=== PATIENT | female | born 1965 | race African-American/Black ===

== ENCOUNTER 2019-11-23 17:58 | Inpatient (IN) | payer MEDICAID ==
[~2019-11-23] VITALS: Ht 167.6 cm; Wt 73.5 kg
[2019-11-23] MEDS ORDERED: ONDANSETRON HCL 4MG/2ML INJ IV STA (18:38)
[2019-11-23] MEDS ORDERED: MORPHINE SULFATE 4 MG/ML CPJ (NOT FOR IM USE) IV STA (18:38)
[2019-11-23] MEDS ORDERED: SODIUM CHLORIDE 0.9% 1,000 ML IV ONE (18:38)
[2019-11-23 19:08] LABS: BASOPHILS % 0.5 % (0.0-2.0); EOSINOPHILS % 1.6 % (0.0-5.0); HEMATOCRIT. 45.2 % (36.0-48.0); HEMOGLOBIN. 15.4 g/dL (12.0-16.0); LYMPHOCYTES % 27.5 % (20.0-50.0); MEAN CORPUSCULAR HEMOGLOBIN 30.7 pg (28.0-32.0); MEAN CORPUSCULAR VOLUME 90.5 fL (81.0-99.0); MEAN PLATELET VOLUME 8.9 fl (7.4-10.4); MONOCYTES % 5.9 % (2.0-8.0); NEUTROPHILS % 64.5 % (40.0-76.0); PLATELET 283 x1000/uL (130-400); RED CELL DISTRIBUTION WIDTH 12.6 % (11.6-14.6)
[2019-11-23 19:09] LABS: CHLORIDE 94 mEq/L (98-107)
[2019-11-23 19:13] LABS: INR 0.9; PROTHROMBIN TIME 9.8 sec (9.6-11.0)
[2019-11-23 19:14] LABS: BG BASE EXCESS -2.1 mmol/L (-2.0-2.0); BG CARBOXYHEMOGLOBIN 0.4 % (0.5-1.5); BG DEOXYHEMOGLOBIN 3.8 % (0.0-5.0); BG FRACTION INSPIRED OXYGEN 21; BG HCO3 ACT 21.9 mmol/L (22.0-26.0); BG METHEMOGLOBIN 0.3 % (0.0-1.5); BG OXYGEN SATURATION 96.2 % (92.0-98.5); BG OXYHEMOGLOBIN 95.5 % (94.0-97.0); BG PCO2 35.6 mmHg (35.0-45.0); BG PH 7.407 (7.350-7.450); BG PO2 81.9 mmHg (75.0-100.0); BG SAMPLE SITE RIGHT RADIAL; BG VENT MODE ROOM AIR
[2019-11-23 19:14] LABS: ETHANOL BLOOD < 10 mg/dL
[2019-11-23 19:44] LABS: BETA HYDROXYBUTYRATE 0.1 mMol/L (0.0-0.3)
[2019-11-23] MEDS ORDERED: INSULIN REGULAR (HUMULIN R) 300UNITS/3ML IV ONE (19:45)
[2019-11-23 19:58] LABS: CLARITY URINE CLEAR (CLEAR); COLOR URINE YELLOW (YELLOW); KETONES URINE NEGATIVE (NEGATIVE); LEUKOCYTE ESTERASE URINE NEGATIVE (NEGATIVE); NITRITE URINE NEGATIVE (NEGATIVE); OCCULT BLOOD URINE TRACE (NEGATIVE); PROTEIN URINE 2+ (NEGATIVE); SPECIFIC GRAVITY URINE 1.035 (1.005-1.030); UROBILINOGEN URINE 0.2 E.U./dL (0.2-1.0)
[2019-11-23 20:21] LABS: *AMPHETAMINES SCREEN URINE NEGATIVE (NEGATIVE); *BARBITURATES SCREEN URINE NEGATIVE (NEGATIVE); *BENZODIAZEPINES SCREEN URINE NEGATIVE (NEGATIVE); *COCAINE SCREEN URINE NEGATIVE (NEGATIVE)
[2019-11-23 20:23] LABS: CANNABINOID URINE SCREEN PRESUMTIVE POSITIVE (NEGATIVE); METHADONE URINE SCREEN NEGATIVE (NEGATIVE); OPIATES URINE SCREEN PRESUMTIVE POSITIVE (NEGATIVE); PHENCYCLIDINE URINE SCREEN NEGATIVE (NEGATIVE)
[2019-11-23] MEDS ORDERED: IOHEXOL-350 100 ML BOTTLE ONE (23:09)
[2019-11-23 23:30] VITALS: BP 112/59
[2019-11-24] MEDS ORDERED: ONDANSETRON HCL 4MG/2ML INJ IV PRN (01:00)
[2019-11-24] MEDS ORDERED: ACETAMINOPHEN 325MG TABLET PO PRN (01:00)
[2019-11-24] MEDS ORDERED: DIPHENHYDRAMINE 50MG/ML VIAL IV PRN (01:00)
[2019-11-24] MEDS ORDERED: DEXTROSE 50% WATER 50ML SYRINGE IV PRN (01:00)
[2019-11-24] MEDS: MORPHINE SULFATE 2 MG/ML CPJ (NOT FOR IM USE) IV PRN ×3 (01:26→15:27)
[2019-11-24] MEDS ORDERED: SODIUM CHLORIDE 0.9% 1,000 ML IV SCH (02:00)
[2019-11-24 04:00] VITALS: BP 113/69
[2019-11-24] MEDS ORDERED: ISOS30TA6 PO (04:11)
[2019-11-24] MEDS ORDERED: CARI350T27 PO (04:11)
[2019-11-24] MEDS ORDERED: METO-396 PO (04:11)
[2019-11-24] MEDS ORDERED: GABA-531 PO (04:11)
[2019-11-24] MEDS ORDERED: HYDR-4009 PO (04:11)
[2019-11-24] MEDS ORDERED: INSU500I SUBCUT (04:11)
[2019-11-24] MEDS ORDERED: INSU100I28 (04:11)
[2019-11-24] MEDS ORDERED: ASPI-1158 PO (04:11)
[2019-11-24] MEDS ORDERED: CLOP75TA33 PO (04:11)
[2019-11-24] MEDS ORDERED: INSU100I28 SQ (04:14)
[2019-11-24] MEDS: BLOOD SUGAR DIAGNOSTIC STRIP TEST SCH ×3 (07:02→18:12)
[2019-11-24] MEDS ORDERED: PANTOPRAZOLE 40MG DR TABLET PO SCH (07:20)
[2019-11-24 08:00] VITALS: BP 123/69
[2019-11-24] MEDS ORDERED: CLOPIDOGREL 75MG TABLET PO SCH (09:00)
[2019-11-24] MEDS ORDERED: ASPIRIN 81MG EC TABLET PO SCH (09:00)
[2019-11-24] MEDS ORDERED: METOPROLOL TARTRATE 25MG TABLET PO SCH (09:00)
[2019-11-24] MEDS ORDERED: ENOXAPARIN 30MG/0.3ML SYR SUBCUT SCH (09:00)
[2019-11-24] MEDS ORDERED: ISOSORBIDE MONONITRATE 30MG TABLET SR 24HR PO SCH (09:00)
[2019-11-24] MEDS ORDERED: ENOXAPARIN 40MG/0.4ML SYR SUBCUT SCH (09:00)
[2019-11-24] MEDS ORDERED: [UNRECOGNIZED DRUG - OTHER] SCH (09:00)
[2019-11-24] MEDS ORDERED: MEDICATION NOT ON FORMULARY EA (Metoprolol Succinate 25 MG) PO SCH (09:00)
[2019-11-24] MEDS ORDERED: INSULIN GLARGINE HUM REC ANLOG 70 UNIT SCH (09:00)
[2019-11-24] MEDS: GABAPENTIN 300MG CAPSULE PO SCH ×3 (09:03→16:58)
[2019-11-24] MEDS: INSULIN LISPRO 100 UNITS/ML SUBCUT SCH ×3 (09:08→18:35)
[2019-11-24 09:45] LABS: BASOPHILS % 0.4 % (0.0-2.0); EOSINOPHILS % 3.4 % (0.0-5.0); HEMATOCRIT. 36.3 % (36.0-48.0); HEMOGLOBIN. 12.6 g/dL (12.0-16.0); LYMPHOCYTES % 32.4 % (20.0-50.0); MEAN CORPUSCULAR HEMOGLOBIN 30.9 pg (28.0-32.0); MEAN CORPUSCULAR VOLUME 89.4 fL (81.0-99.0); MEAN PLATELET VOLUME 8.6 fl (7.4-10.4); MONOCYTES % 7.1 % (2.0-8.0); NEUTROPHILS % 56.7 % (40.0-76.0); PLATELET 240 x1000/uL (130-400); RED BLOOD CELL COUNT 4.06 mill/uL (4.2-5.4); RED CELL DISTRIBUTION WIDTH 12.5 % (11.6-14.6)
[2019-11-24 09:51] LABS: CHLORIDE 104 mEq/L (98-107)
[2019-11-24 09:59] LABS: LDL CHOLESTEROL 187 mg/dL (5-100)
[2019-11-24] MEDS ORDERED: INSULIN GLARGINE UD 100 UNITS/ML SYR SUBCUT SCH (10:00)
[2019-11-24 10:01] LABS: HDL CHOLESTEROL 59 mg/dL (40-59); T4 FREE 1.18 ng/dL (0.76-1.46)
[2019-11-24 12:00] VITALS: BP 104/64
[2019-11-24] MEDS ORDERED: DULOXETINE HCL 20MG DR CAPSULE PO SCH (15:15)
[2019-11-24] MEDS ORDERED: CYM20 MT (15:57)
[2019-11-24] MEDS ORDERED: ATOR10TA MT (15:58)
[2019-11-24 16:00] VITALS: BP 110/66
[2019-11-24 16:45] LABS: VITAMIN B12 SERUM 570 pg/mL (211-911)
[2019-11-24 18:05] VITALS: BP 110/66
[2019-11-24] MEDS ORDERED: INSULIN GLARGINE HUM REC ANLOG 70 UNIT SQ SCH (21:00)
[2019-11-24] MEDS ORDERED: [UNRECOGNIZED DRUG - OTHER] SQ SCH (21:00)
[2019-11-24] MEDS ORDERED: CARISOPRODOL 350 MG TABLET PO SCH (21:00)
[2019-11-25] MEDS ORDERED: ENOXAPARIN 40MG/0.4ML SYR SUBCUT SCH (09:00)
== END 2019-11-24 18:53 | disposition home or self-care (01) | DRG 420 ==
LOC: ER 17:58 → MICUSO 21:09 → EDBEDREQTM 21:33 → EDBEDREQ 21:33 → 6WST 22:56
PROVIDERS: ADMIT Internal Medicine; ATTEND Internal Medicine
DX: E11.65 Type 2 diabetes mellitus with hyperglycemia (principal); E11.319 Type 2 diabetes mellitus with unspecified diabetic retinopathy without macular edema; E78.5 Hyperlipidemia, unspecified; E11.42 Type 2 diabetes mellitus with diabetic polyneuropathy; I11.9 Hypertensive heart disease without heart failure; Z79.02 Long term (current) use of antithrombotics/antiplatelets; Z79.4 Long term (current) use of insulin; Z79.899 Other long term (current) drug therapy; Z86.79 Personal history of other diseases of the circulatory system; Z91.19 Patient's noncompliance with other medical treatment and regimen; Z88.8 Allergy status to other drugs, medicaments and biological substances
CPT/HCPCS: 36415; 36600; 70496; 70498; 71045; 80053; 80061; 80305; 80320; 81003; 82010; 82375; 82607; 82805; 82962; 83036; 83880; 83930; 83935; 84439; 84443; 84484; 85025; 93005; 96374; 99291; J1650; J1815; J2270; J2405; J7030; Q9967; G0480

== ENCOUNTER 2024-09-13 12:00 | Emergency (ER) | payer MEDICAID, OTHER ==
[~2024-09-13] VITALS: Ht 170.2 cm; Wt 95.0 kg
[~2024-09-13 12:00] MED LIST: ALBU18HF2 IH; AMLO10TA80 MT; ASPI-1406 PO; ATOR10TA MT; CARI-517 PO; CLOP75TA33 PO; CYM20 MT; FURO40TA5 PO; GABA-1180 PO; HYDR-4009 PO; INSU100I28; INSU100I28 SQ; INSU500I SUBCUT; ISOS30TA91 PO; LOSA25TA26 MT; METO-396 PO
[2024-09-13 12:03] VITALS: O2SAT 95
[2024-09-13 14:08] LABS: BASOPHILS % 0.6 % (0.0-2.0); EOSINOPHILS % 2.9 % (0.0-5.0); HEMATOCRIT. 30.8 % (36.0-48.0); HEMOGLOBIN. 10.4 g/dL (12.0-16.0); LYMPHOCYTES % 15.1 % (20.0-50.0); MEAN CORPUSCULAR HEMOGLOBIN 30.5 pg (28.0-32.0); MEAN CORPUSCULAR HGB CONC 33.8 g/dL (31.0-37.0); MEAN CORPUSCULAR VOLUME 90.1 fL (81.0-99.0); MEAN PLATELET VOLUME 8.3 fl (7.4-10.4); NEUTROPHILS % 70.4 % (40.0-76.0); PLATELET 261 x1000/uL (130-400); RED BLOOD CELL COUNT 3.42 mill/uL (4.2-5.4); RED CELL DISTRIBUTION WIDTH 15.8 % (11.6-14.6); WHITE BLOOD COUNT 10.6 x1000/uL (4.5-11.0)
[2024-09-13 14:22] LABS: CREATININE 4.6 mg/dL (0.6-1.0); PROTHROMBIN TIME 10.9 sec (9.6-11.0)
[2024-09-13] MEDS: KETOROLAC 30MG/ML VIAL IV STA (14:24)
[2024-09-13] MEDS: DIPHENHYDRAMINE 25MG CAPSULE PO ONE (15:05)
[2024-09-13] MEDS ORDERED: NAPR-681 MT (16:17)
[2024-09-13] MEDS: DIPHENHYDRAMINE 50MG/ML VIAL IV ONE (17:01)
[2024-09-13 17:53] VITALS: BP 133/72; PULSE 83; RESP 18; TEMP 36.9; O2SAT 99
== END 2024-09-13 18:11 | disposition home or self-care (01) ==
LOC: ER 12:14
DX: M17.11 Unilateral primary osteoarthritis, right knee (principal); E11.9 Type 2 diabetes mellitus without complications; I11.0 Hypertensive heart disease with heart failure; I50.9 Heart failure, unspecified; J44.9 Chronic obstructive pulmonary disease, unspecified; I25.2 Old myocardial infarction; Z79.1 Long term (current) use of non-steroidal anti-inflammatories (NSAID); Z79.02 Long term (current) use of antithrombotics/antiplatelets; Z79.4 Long term (current) use of insulin; Z79.82 Long term (current) use of aspirin; Z79.899 Other long term (current) drug therapy; Z86.73 Personal history of transient ischemic attack (TIA), and cerebral infarction without residual deficits; Z99.2 Dependence on renal dialysis; Z89.512 Acquired absence of left leg below knee; Z88.0 Allergy status to penicillin; Z88.8 Allergy status to other drugs, medicaments and biological substances
CPT/HCPCS: 80048; 85025; 85610; 36415; 73560; 96374; 96375; 99285; Q0163; J1200; J1885; Z7610